=== PATIENT | male | born 1990 | race Caucasian/White ===

== ENCOUNTER 2023-05-04 18:29 | Emergency (ER) | payer SELFPAY ==
[2023-05-04 18:36] VITALS: BP 142/65; PULSE 77; RESP 16; TEMP 36.4; O2SAT 98; BMI 24.4
--- NOTE | 2023-05-04 19:25 | XR_ITS ---
[place] [id number] Patient Name: JESUSITA FU MRN: [id number] date: 1990 Sex: M Assigned Patient Location: ER Current Patient Location: ED.MAIN Accession/Order Number: [id number] Exam Date: 05/04/2023 19:30 Report Date: 05/04/2023 20:04 At the request of: LUIS ENRIQUE WHARTON Procedure: XR foot LT min 3V EXAM: XR foot LT min 3V HISTORY: Foot pain for 3 years COMPARISON: None. TECHNIQUE: 3 views FINDINGS: No osseous lesion, fracture, dislocation or subluxation. Joint spaces are normal. No visualized effusion. No visualized soft tissue edema. XR/XR foot LT min 3V IMPRESSION: Normal x-rays Electronically authenticated by: QUIANA OCHOA Date: 05/04/2023 20:04
--- NOTE | 2023-05-04 19:26 | ED.GENADUL1 ---
HPI - General Adult General Chief complaint: Extremity Injury, Lower Stated complaint: foot injury Time Seen by Provider: 05/04/23 19:05 Mode of arrival: walk-in Limitations: no limitations History of Present Illness HPI narrative: 32-year-old male presents for evaluation of left foot issue. Three years ago he had a crush injury of his left 5th toe and had a fracture. Recently it been going a bit numb and he's been limping a bit. He hasn't had any new injury but he was sent home from work because they told him that he needed to get cleared to make sure he didn't have a new injury. He's also noted some discoloration that smells bad between the 4th and 5th toes. He is really not complaining of any pain to me. He was sent home from work two days ago but he's been having issues for about a week. Related Data Previous Rx's Medication Instructions Recorded clotrimazole 1 % topical cream 1 applic topical BID #30 grams 05/04/23 (Lotrimin AF (clotrimazole)) Allergies Allergy/AdvReac Type Severity Reaction Status Date / Time amoxicillin Allergy Severe Hives Verified 05/04/23 18:36 codeine Allergy Severe Hives Verified 05/04/23 18:36 Review of Systems ROS Narrative A ten point review of systems is negative except as noted above. PFSH [facility] Social History Smoking status: Heavy tobacco smoker Exam Narrative Exam Narrative: Nurses note and vital signs reviewed and patient is not hypoxic. General: The patient appears well and in no apparent distress. Patient is resting comfortably on cart. Skin: Warm, dry, no pallor noted. There is some malodorous discoloration between the 4th and 5th toes of his left foot. There is no break in the skin.. Head: Normocephalic, atraumatic Eye: Normal conjunctiva, no drainage Ears, Nose, Mouth, and Throat: oral mucosa is moist. Nares patent. Cardiovascular: Regular Rate and Rhythm Respiratory: Patient is in no distress, no accessory muscle use, lungs are clear to auscultation, no wheezing, rales or rhonchi Back: non-tender GI: nontender Musculoskeletal: his left foot has no erythema swelling or palpable tenderness. No bruising or break in the skin. Neurological: A&O, normal speech Psychiatric: Cooperative Constitutional Vital Signs, click to edit/add: Last Vital Signs Temp 97.6 F 05/04/23 18:36 Pulse 77 05/04/23 18:36 Resp 16 05/04/23 18:36 BP 142/65 H 05/04/23 18:36 Pulse Ox 98 05/04/23 18:36 O2 Del Method Room Air 05/04/23 18:36 Course Vital Signs Vital signs: Vital Signs Temperature 97.6 F 05/04/23 18:36 Pulse Rate 77 05/04/23 18:36 Respiratory Rate 16 05/04/23 18:36 Blood Pressure 142/65 H 05/04/23 18:36 Pulse Oximetry 98 05/04/23 18:36 Oxygen Delivery Method Room Air 05/04/23 18:36 Temperature 97.6 F 05/04/23 18:36 Pulse Rate 77 05/04/23 18:36 Respiratory Rate 16 05/04/23 18:36 Blood Pressure 142/65 H 05/04/23 18:36 Pulse Oximetry 98 05/04/23 18:36 Oxygen Delivery Method Room Air 05/04/23 18:36 Medical Decision Making MDM Narrative Medical decision making narrative: x-rays are negative per radiologist. I suspect that is ongoing issues with his foot is due to his injury from three years ago. Additionally however he has athlete's foot. Treatment diagnosis and follow-up were discussed with the patient. Differential Diagnosis Differential Diagnosis: foot fracture, chronic foot pain, tendinitis Imaging Data left foot x-ray: Radiologist's impression: no acute findings Discharge Plan Discharge Chief Complaint: Extremity Injury, Lower Clinical Impression: Foot pain, Tinea pedis Patient Disposition: Home, Self-Care Time of Disposition Decision: 20:31 Condition: Good Mode of Transportation: Private Vehicle Prescriptions / Home Meds: New clotrimazole [Lotrimin AF (clotrimazole)] 1 % cream 1 applic topical BID Qty: 30 0RF Instructions: Skin Yeast Infection (ED) Additional Instructions: F/U with Dr Mathew Stand Alone Forms: Portal Instructions Referrals: Physician,Non-Staff, MD [Primary Care Provider] - 1 week
== END 2023-05-04 20:50 | disposition home or self-care (01) ==
PROVIDERS: Emergency Provider Emergency Medicine
DX: B35.3 Tinea pedis (principal); M79.672 Pain in left foot
CPT/HCPCS: 73630; 99283